=== PATIENT | female | born 1975 | race Caucasian/White ===

== ENCOUNTER 2017-09-03 14:39 | Emergency (ER) | payer BC ==
--- NOTE | 2017-09-03 15:16 | EDM.PDOC ---
ED HPI GENERAL MEDICAL PROBLEM - General Chief Complaint: Lower Extremity Injury/Pain Stated Complaint: PAIN IN RT LEG Time Seen by Provider: 09/03/17 15:16 Source of Information: Reports: Patient History Limitations: Reports: No Limitations - History of Present Illness INITIAL COMMENTS - FREE TEXT/NARRATIVE: HISTORY AND PHYSICAL: 41-year-old female presents with right thigh pain History of Present Illness: []Patient presents since after having an injury on Thursday 5 days ago Playing soft ball and was hit in the calf by a ball Patient is on estrogen replacement. Review of Systems: As per history of present illness and below otherwise all systems reviewed and negative. Past medical history: As per history of present illness and as reviewed below otherwise noncontributory. Surgical history: As per history of present illness and as reviewed below otherwise noncontributory. Social history: No reported history of drug or alcohol abuse. Family history: As per history of present illness and as reviewed below otherwise noncontributory. Physical exam: Alert and oriented female answering questions appropriately in full sentences without any shortness of breath .nontoxic in appearance HEENT: Atraumatic, normocehpalic, pupils reactive, negative for conjunctival pallor or scleral icterus, mucous membranes moist, throat clear, neck supple, nontender, trachea midline. Lungs: Clear to auscultation, breath sounds equal bilaterally, chest non tender. Heart: S1S2, regular, negative for clicks, rubs, or JVD. Abdomen: Soft, nondistended, nontender. Negative for masses or hepatossplenmegaly. Negative for costovertebral tenderness. Pelvis: Stable nontender. Genitourinary: Deferred. Rectal: Deferred Extremities: Atraumatic, negative for cords or calf pain. Significant ecchymosis to the right calf edema present. Tenderness to the mid thigh. Neurovascular unremarkable. Neuro: Awake, alert, oriented. Cranial nerves II through XII unremarkable. Cerebellum unremarkable. Motor and sensory unremarkable throughout. Exam nonfocal. Discussed with the patient and her no DVT was noted Diagnostics: []Ultrasound right lower extremity for DVT Therapeutics: [] Impression: []Right leg pain no DVT Plan: []Discharged home Elevate and ice 3 times a day when necessary Ibuprofen for discomfort Any sudden sharp pain to the chest or difficulty breathing return immediately for reevaluation Follow-up with your primary care provider Definitive disposition and diagnosis as appropriate pending reevaluation and review of above. Onset: Sudden Duration: Day(s): (5) Location: Reports: Lower Extremity, Right Quality: Reports: Throbbing Severity: Moderate Improves with: Reports: Cold Therapy, Medication Worsens with: Reports: None Associated Symptoms: Reports: No Other Symptoms Right Upper Leg Pain Score (Numeric/FACES): 5 - Related Data Allergies Allergy/AdvReac Type Severity Reaction Status Date / Time Penicillins Allergy Other Verified 09/03/17 14:58 Home Meds: Home Meds Estradiol Acetate [Femring] 1 each VG ASDIRECTED 09/03/17 [History] Zolpidem [Ambien] 5 mg PO ASDIRECTED PRN 09/03/17 [History] buPROPion [Wellbutrin] 75 mg PO DAILY 09/03/17 [History] Past Medical History Cardiovascular History: Reports: Arrhythmia, NM, Other (See Below) Other Cardiovascular History: patient states she had an EKG done 2 years ago ( 2015) that showed she might have had a previous heart attack but "not to worry about it and just keep an eye on symptoms". hx of bradycardia [employer] History: Reports: Endometriosis, - Past Surgical History GI Surgical History: Reports: Hernia, Abdominal Female Surgical History: Reports: Breast Reduction, Hysterectomy, Salpingo- Oophorectomy Social & Family History - Family History Family Medical History: Noncontributory - Tobacco Use Smoking Status *Q: Never Smoker - Caffeine Use Caffeine Use: Reports: Soda - Recreational Drug Use Recreational Drug Use: No Review of Systems - Review of Systems Review Of Systems: ROS reveals no pertinent complaints other than HPI. ED EXAM, GENERAL - Physical Exam Exam: See Below (see dictation) Course - Vital Signs Last Recorded V/S: Last Vital Signs Temp 36.3 C 09/03/17 14:54 Pulse 52 L 09/03/17 14:54 Resp 18 09/03/17 14:54 BP 132/82 09/03/17 14:54 Pulse Ox 98 09/03/17 14:54 - Orders/Labs/Meds Orders: Active Orders 24 hr Category Date Time Status Communication Order [RC] STAT Care 09/03/17 15:25 Active Venous Doppler Lwr Ext Rt [US] Stat Exams 09/03/17 15:19 Ordered Departure - Departure Time of Disposition: 16:31 Disposition: Home, Self-Care 01 Condition: Good Clinical Impression: Right leg pain, Contusion of thigh - Discharge Information Instructions: Contusion, [id number] Referrals: Ras Ulloa MD [Primary Care Provider] - Forms: ED Department Discharge Additional Instructions: The following information is given to patients seen in the emergency department who are being discharged to home. This information is to outline your options for follow-up care. We provide all patients seen in our emergency department with a follow-up referral. The need for follow-up, as well as the timing and circumstances, are variable depending upon the specifics of your emergency department visit. If you don't have a primary care physician on staff, we will provide you with a referral. We always advise you to contact your personal physician following an emergency department visit to inform them of the circumstance of the visit and for follow-up with them and/or the need for any referrals to a consulting specialist. The emergency department will also refer you to a specialist when appropriate. This referral assures that you have the opportunity for followup care with a specialist. All of these measure are taken in an effort to provide you with optimal care, which includes your followup. Under all circumstances we always encourage you to contact your private physician who remains a resource for coordinating your care. When calling for followup care, please make the office aware that this follow-up is from your recent emergency room visit. If for any reason you are refused follow-up, please contact the [facility] emergency department at and asked to speak to the emergency department charge nurse. Ibuprofen for discomfort no DVTs were noted Follow-up with your primary care provider Should you experience any sharp pain to her chest difficulty breathing return immediately to the emergency department for further evaluation - My Orders Last 24 Hours: My Active Orders 09/03/17 15:19 Venous Doppler Lwr Ext Rt [US] Stat 09/03/17 15:25 Communication Order [RC] STAT - Assessment/Plan Last 24 Hours: My Active Orders 09/03/17 15:19 Venous Doppler Lwr Ext Rt [US] Stat 09/03/17 15:25 Communication Order [RC] STAT
--- NOTE | 2017-09-04 15:04 | US ---
EXAM DATE: 09/03/17 PATIENT'S AGE: 41 Patient: AKOSUA SHARPE Facility: [place], [place] Site . Site : [id number] Study: US Extremity [id number] 4:38:28 PM Ordering Physician: Doctor Austin Final Report: INDICATION: Leg pain and injury TECHNIQUE: Ultrasound venous duplex lower right extremity. Compression venous exam was performed using cartagena-scale, color Doppler, and spectral Doppler imaging. COMPARISON: None. FINDINGS: Sonographic imaging demonstrates the right common femoral, deep femoral, superficial femoral, popliteal, posterior tibial and greater saphenous and the contralateral left common femoral veins to be fully compressible with normal color Doppler blood flow. IMPRESSION: Normal right lower extremity venous ultrasound, no sign of deep venous thrombosis. Dictated by Brett Luong MD @ Sep 03 2017 4:57PM (Electronic Signature) Report Signed by Proxy. DANIELLE
== END 2017-09-03 16:43 | disposition home or self-care (01) ==
LOC: MW.ED 14:45
DX: S70.11XA Contusion of right thigh, initial encounter (principal); Z88.0 Allergy status to penicillin; Z79.899 Other long term (current) drug therapy; W21.07XA Struck by softball, initial encounter
CPT/HCPCS: 93971-26-RT; 93971-RT; 99283-25